=== PATIENT | female | born 1945 | race Two or more races ===

== ENCOUNTER 2024-04-06 14:31 | Outpatient (REF) | payer OTHER, SELFPAY ==
[2024-04-06 19:30] LABS: Vitamin B12 980 pg/mL (200-900)
[2024-04-07 03:55] LABS: Syphilis Screen Nonreactive (Nonreactive)
== END 2024-04-06 14:32 | disposition home or self-care (01) ==
LOC: HO.LAB 14:31
PROVIDERS: PCP Internal Medicine; Visit Provider Psychiatry & Neurology Neurology
DX: G30.9 Alzheimer's disease, unspecified (principal)
CPT/HCPCS: 36415; 82607; 86780

== ENCOUNTER 2024-05-05 13:12 | Outpatient (REF) | payer OTHER, SELFPAY | END 2024-05-05 13:13 | disposition home or self-care (01) | LOC: HO.MRI 13:12 | PROVIDERS: PCP Internal Medicine; Visit Provider Psychiatry & Neurology Neurology | DX: G30.9 Alzheimer's disease, unspecified (principal) | CPT/HCPCS: 70551 ==

== ENCOUNTER 2024-07-13 08:53 | Outpatient (REF) | payer OTHER, SELFPAY ==
--- NOTE | ~2024-07-13 | XR_ITS ---
EXAMINATION: XR SHOULDER, LEFT CLINICAL INFORMATION: M25.512 - Pain in left shoulder COMPARISON: None available. TECHNIQUE: Three views of the left shoulder. FINDINGS: Normal bone mineralization. No fracture, dislocation, or suspicious bone lesion. Normal alignment. The glenohumeral joint demonstrates early degenerative arthritis. The AC joint demonstrates mild degenerative arthritis with mild undersurface spurs. There is a type II acromion. No undersurface spurring. The subacromial space is preserved. Remainder of the soft tissue and bony structures appear normal. XR/XR shoulder LT min 2V IMPRESSION: 1. No acute bony abnormalities. 2. 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 Electronically signed by: Rojas Rolon MD 07/13/2024 02:38 PM SONY COLBERT
[2024-07-13 10:18] LABS: MANUAL DIFF FLAG NO
[2024-07-13 10:44] LABS: Basophils Absolute Auto 0.1 X10*3/uL (0.0-0.2); Basophils Percent Auto 0.7 % (0-2); Eosinophils Absolute Auto 0.2 X10*3/uL (0.0-0.4); Eosinophils Percent Auto 2.5 % (0-4); Hematocrit 38.9 % (37.0-47.0); Hemoglobin 12.5 g/dl (12.0-16.0); Imm Gran Abs Auto 0.01 X10*3/uL (0.00-0.03); Imm Gran Pct Auto 0.1 % (0.0-0.4); Lymphocytes Absolute Auto 1.8 X10*3/uL (1.2-4.9); Lymphocytes Percent Auto 25.5 % (20-40); Mean Corpuscular HGB Conc 32.1 g/dl (31.0-35.0); Mean Corpuscular Hemoglobin 29.3 pg (27.0-33.0); Mean Corpuscular Volume 91.3 fL (80.0-98.0); Mean Platelet Volume 9.4 fL (9.4-12.3); Monocytes Absolute Auto 0.6 X10*3/uL (0.1-1.2); Monocytes Percent Auto 8.7 % (2-11); Neutrophils Absolute Auto 4.5 x10*3/uL (2.0-8.3); Neutrophils Percent Auto 62.5 % (45-73); Platelet Count 269 X10*3/uL (160-400); Red Blood Count 4.26 X10*6/uL (4.20-5.50); Red Cell Distribution Width 14.5 % (11.0-16.0); White Blood Count 7.1 X10*3/uL (4.8-10.8)
[2024-07-13 11:10] LABS: Alanine Aminotransferase 29 U/L (0-31); Alkaline Phosphatase 67 U/L (39-117); Anion Gap 12 (12-20); Aspartate Amino Transferase 30 U/L (5-31); Bilirubin Total 0.4 mg/dL (0.0-1.0); Blood Urea Nitrogen 11 mg/dL (9-16); Calcium 9.9 mg/dL (8.4-10.2); Carbon Dioxide 27 mmol/L (22-29); Chloride 107 mmol/L (96-108); Cholesterol 159 mg/dL (<200); Estimated Glomerular Filt Rate > 60; Glucose Fasting 88 mg/dL (60-99); HDL Cholesterol 47 mg/dL (>40); LDL Cholesterol Calculated 94 mg/dL (<100); Sodium 142 mmol/L (135-145); Triglycerides 94 mg/dL (<150)
== END 2024-07-13 08:54 | disposition home or self-care (01) ==
LOC: HO.LAB 08:53
PROVIDERS: PCP Internal Medicine; Visit Provider Internal Medicine
DX: G30.9 Alzheimer's disease, unspecified (principal); F02.80 Dementia in other diseases classified elsewhere, unspecified severity, without behavioral disturbance, psychotic disturbance, mood disturbance, and anxiety; Z23 Encounter for immunization; F41.1 Generalized anxiety disorder; I10 Essential (primary) hypertension; F33.1 Major depressive disorder, recurrent, moderate; G47.00 Insomnia, unspecified; G81.94 Hemiplegia, unspecified affecting left nondominant side; R29.898 Other symptoms and signs involving the musculoskeletal system; M25.512 Pain in left shoulder; Z99.3 Dependence on wheelchair
CPT/HCPCS: 36415; 73030; 80053; 80061; 85025; 90471; 90677; 96127; 99202

== ENCOUNTER 2024-07-13 08:53 | Outpatient (AMB) | payer OTHER, SELFPAY ==
--- NOTE | 2024-07-13 08:59 | MHC.PC.OV ---
Vital Signs 07/13/24 09:06 BMI Reason not done Patient refused/unable BP 126/80 Blood Pressure Location Rt brachial Pulse 85 Pulse Source Pulse Oximeter Pulse Oximetry (%) 96 Oxygen Delivery Method Room Air Intake Visit Reasons: New Patient Children'S Program Coordinator Required: Yes Children'S Program Coordinator Language: Loan Services Professional Name: Megan Summers MD Information Interpreted: non-clinical & clinical Accompanied by: Son Allergies No Known Allergies Allergy (Verified 07/13/24 09:16) Medication List - Last Reconciled 07/13/24 by Megan Summers MD candesartan-hydrochlorothiazid 32-25 mg 1 tab PO DAILY cetirizine 10 mg PO DAILY PRN clonazepam 0.5 mg PO BEDTIME docusate sodium 240 mg PO PRN losartan 100 mg PO DAILY olanzapine 5 mg PO DAILY sertraline 100 mg PO DAILY trazodone 100 mg PO BEDTIME PRN Tobacco use date assessed: 07/13/24 Fall risk assessment: 1 Fall in past year Last assessed Fall Risk: 07/13/24 Dental Screening Dental Screen Date: 07/13/24 Did you have a dental visit in the last 12 months?: Yes Did you have a dental problem in the last 6 months where you did not have access to dental care?: No Was dental information given to patient?: Patient has dentist HPI HPI Comments History of Present Illness Details The patient is a 78-year-old female presenting with Alzheimer's Disease to establish care. The sourcing analyst reports an escalation in depressive symptoms, featured by gabrielle-hour crying spells, alongside progressive cognitive decline. Though previously managed stably on sertraline and trazodone, recent behavioral changes prompted a revisit to her neurologist. Despite adhering to her antihypertensive regimen, she experiences disordered sleep and anxiety. With persistent difficulties in retaining new memories, her condition inhibits her exercise and mobility, even impacting her dietary habits. Although a neuroimaging was negative for acute changes, physical complaints involving limb discomfort have not resolved with preliminary interventions. She follows with Neurology. Currently wheelchair dependent. Has left arm hemiparesis but no evidence of stroke. Will benefit from physical therapy. Also has bilateral leg weakness and son wants her to have physical therapy for it. She has moderate major depression with anxiety as well as insomnia and trazodone will be increased. [facility] Surgical History (Updated 07/13/24 @ 09:24 by Megan Summers MD) History of total abdominal hysterectomy Family History Mother Alzheimer disease Father Alcoholism Social History (Updated 07/13/24 @ 09:26 by Megan Summers MD) Housing: House Alcohol intake: never Patient Tobacco Use Status: Former Tobacco user e-Cigarette/Vaping Use: Never Used service: No Current occupational status: unemployed Current occupational exposures/hazards: No Cognitive needs: Yes Hearing needs: No Vision needs: No Questionnaire PHQ-9 Over the last 2 weeks, how often have you been bothered by any of the following problems? 1. Little interest or pleasure in doing things: not at all 2. Feeling down, depressed, or hopeless: nearly every day 3. Trouble falling or staying asleep, or sleeping too much: more than half the days 4. Feeling tired or having little energy: nearly every day 5. Poor appetite or overeating: several days 6. Feeling bad about yourself - or that you are a failure or have let yourself or your family down: not at all 7. Trouble concentrating on things, such as reading the newspaper or watching television: nearly every day 8. Moving or speaking so slowly that other people could have noticed. Or the opposite - being so fidgety or restless that you have been moving around a lot more than usual: more than half the days 9. Thoughts that you would be better off or of hurting yourself in some way: not at all Total score: 14 Depression Screening Interpretation: Positive Depression Screening Follow-up: Existing condition, In treatment and Follow-up Visit Requested Depression Screening Done: Yes 42840 - PHQ-9 Billing: Yes Source: Developed by Drs. Michael Camacho, Alfreda Ware, Nick Bran and colleagues, with an educational mima from [employer]. Thrive Questionnaire Date Thrive assessed: 07/13/24 I am a: Patient What is your living situation today?: I have a steady place to live Within the past 12 months, did the food you bought not last and you didn't have the money to get more?: Sometimes True Within the past 12 months, did you worry whether your food would run out before you got money to buy more?: Sometimes True Do you have trouble paying for medicines?: No Do you have trouble getting transportation to medical appointments?: No Do you have trouble paying your heating and electricity bill?: I choose not to answer this question Do you have trouble taking care of your child, family member or friend?: Yes Do you have trouble with day-to-day activities such as bathing, preparing meals, shopping, managing finances, etc.?: Yes Are you currently unemployed and looking for a job?: I choose not to answer this question Are you interested in more education?: I choose not to answer this question Please select the resources that you would like help with: Food Currently or been in a relationship where the following occur: I choose not to answer THRIVE Score: 2 AUDIT C Alcohol Use Questionnaire (AUDIT-C) 1. How often do you have a drink containing alcohol?: Never 3. How often do you have six or more drinks on one occasion?: Never Total Score: 0 Score Reviewed/Action Taken: No VIC-7 AMB Questionnaire VIC-7 Date VIC - 7 assessed: 07/13/24 Feeling nervous, anxious, or on edge: 3 = Nearly every day Not being able to stop or control worryin = Nearly every day Worrying too much about different things: 1 = Several days Trouble relaxin = More than half the days Being so restless that it is hard to sit still: 2 = More than half the days Becoming easily annoyed or irritable: 3 = Nearly every day Feeling afraid as if something awful might happen: 2 = More than half the days Total VIC-7 score (0-4 normal; 5-9 mild; 10-14 moderate; 15-21 severe): 16 Source: Developed by Drs. Michael Camacho, Alfreda Ware, Nick Bran and colleagues, with an educational mima from [employer]. VIC-7 Assessment Billing VIC-7 Assessment Tool: VIC-7 Assessment 05016 Review of Systems Const All systems reviewed & are unremarkable except as noted in HPI and below Card Denies chest pain at rest, Denies chest pain with activity, Denies edema, Denies irregular heart rhythm, Denies claudication, Denies dyspnea, Denies dyspnea on exertion, Denies orthopnea, Denies paroxysmal nocturnal dyspnea and Denies slow heart rate Resp Denies cough, Denies dyspnea and Denies dyspnea on exertion GI Denies abdominal pain, Denies change in bowel habits, Denies excessive flatus, Denies nausea and Denies vomiting Musc Reports abnormal gait, Reports arthralgias and Reports limited range of motion Neuro Reports abnormal gait, Reports behavioral changes, Reports confusion and Reports memory loss Psych Reports abnormal sleep pattern, Reports anxiety, Reports behavioral changes, Reports change in appetite, Reports confusion, Reports depression and Reports memory loss Physical exam (Primary Care) Vital Signs: Last Vital Signs Pulse 85 07/13/24 09:06 BP 126/80 07/13/24 09:06 Pulse Ox 96 07/13/24 09:06 Oxygen Delivery Method Room Air 07/13/24 09:06 Tobacco/Smoking Status: Tobacco use Status Tobacco use date assessed 07/13/24 07/13/24 09:14 Patient Tobacco Use Status Former Tobacco user 07/13/24 09:26 e-Cigarette/Vaping Use Never Used 07/13/24 09:26 PHQ-9: PHQ-9 Score PHQ-9: Total score 14 07/13/24 09:42 Depression Screening Interpretation: Positive Depression Screening Follow-up: Existing condition, In treatment and Follow-up Visit Requested Thrive Assessment: Date of Thrive Assessment Date Thrive assessed 07/13/24 07/13/24 09:14 Currently or been in a relationship where the following occur: I choose not to answer Const General: confusion Orientation/consciousness: confusion Limitations: wheelchair Resp Effort & Inspection: normal respiratory effort Auscultation: clear to auscultation bilaterally Cardio Jugular venous distension: no JVD Rate: regular rate Rhythm: regular rhythm Heart sounds: S1 normal heart sound present and S2 normal heart sound present Neuro General: confusion Cognition (Neuro): abnormal cognition Extrem Left upper extremity: shoulder/upper arm Details: abnormal ROM Details: pain with active ROM Details: in ABduction, in extension, in internal rotation and external rotation- Immunizations pneumoc 20-sunil conj-dip cr(PF) 0.5 mL IM syringe Performing Provider: Megan Summers MD [place]forming [place] [facility] Administered by: Michelle Devlin LPN on 07/13/24 09:42 Dose Route Admin Location Dispensed Lot Number Expiration Date [facility] Tool Turret Lathe Set Up Operator 0.5 mL IM Left Deltoid 0.5 mL [id number] 08/16/25 [employer] VIS Given Date VIS Provided VIS Publication Date 07/13/24 Single Vaccine 21 Eligibility Eligibility Date Funding Source Not [facility] Eligible 07/13/24 Private Coding Level of Care Code New Pt Level 4 (04397) Complex EM visit Add On G2211 Diagnoses Alzheimer's dementia G30.9; F02.80 VIC (generalized anxiety disorder) F41.1 Essential hypertension I10 Moderate recurrent major depression F33.1 Wheelchair dependent Z99.3 Insomnia G47.00 Left hemiparesis G81.94 Bilateral leg weakness R29.898 Additional Codes VIC-7 Assessment Billing - VIC-7 Assessment Tool: VIC-7 Assessment 64777 ([id number]) PHQ-9 - 71343 - PHQ-9 Billing: Yes ([id number]) Time Spent (min) 28 Assessment & Plan Assessment & Plan (1) Alzheimer's dementia: Code(s): G30.9 - Alzheimer's disease, unspecified; F02.80 - Dementia in other diseases classified elsewhere, unspecified severity, without behavioral disturbance, psychotic disturbance, mood disturbance, and anxiety Category: Medical (2) VIC (generalized anxiety disorder): Code(s): F41.1 - Generalized anxiety disorder Category: Medical (3) Essential hypertension: Code(s): I10 - Essential (primary) hypertension Category: Medical (4) Moderate recurrent major depression: Code(s): F33.1 - Major depressive disorder, recurrent, moderate Category: Medical (5) Wheelchair dependent: Code(s): Z99.3 - Dependence on wheelchair Category: Medical (6) Insomnia: Code(s): G47.00 - Insomnia, unspecified Category: Medical (7) Left hemiparesis: Code(s): G81.94 - Hemiplegia, unspecified affecting left nondominant side Category: Medical (8) Bilateral leg weakness: Code(s): R29.898 - Other symptoms and signs involving the musculoskeletal system Category: Medical Plan A pneumococcal vaccine was administered during this visit to enhance preventive care against pneumonia. Adjusted trazodone to 150 mg at night due to its insufficient efficacy at the previous dose, aiming to alleviate ongoing depressive symptoms. A shoulder X-ray was ordered to investigate the cause of persistent shoulder discomfort. Physical therapy is advised to increase mobility, improving muscle conditioning due to prolonged wheelchair use. The patient and family are counseled on diet modification to assist with constipation management. Emphasis is placed on medication adherence, especially concerning antihypertensives and neuropsychiatric medications, with close follow-up on the neurologist's recommendations regarding Alzheimer?s management. Patient was informed and verbally consented to the use of an ambient scribe for clinic note documentation during this visit. I discussed with the patient?s family the potential requirement for increased trazodone due to its inadequate effect on current depressive episodes and the plan to evaluate the shoulder and physical function through imaging and therapy. We discussed the essentiality of pneumonia vaccination and its negligible likelihood of causing side effects. I clarified the need for dietary modification as part of constipation management and promised to revisit concerns after orthopedic and neurologic evaluations. Consent was obtained for vaccination, and the family was informed to continue supervising her complex treatment regimen. Orders: Orders PT Evaluation and Treatment Today G81.94 - Hemiplegia, unspecified affecting left nondominant side, M25.512 - Pain in left shoulder, R29.898 - Other symptoms and signs involving the musculoskeletal system Lipid Panel Today I10 - Essential (primary) hypertension Pneumococcal 20 Immunization Today Z23 - Encounter for immunization XR shoulder LT min 2V Today M25.512 - Pain in left shoulder Comprehensive [place]. Panel Fast Today I10 - Essential (primary) hypertension Complete Blood Count Auto Diff Today F02.80 - Dementia in other diseases classified elsewhere, unspecified severity, without behavioral disturbance, psychotic disturbance, mood disturbance, and anxiety, G30.9 - Alzheimer's disease, unspecified Medications: New trazodone 150 mg PO BEDTIME PRN 90 tabs 0RF sleep 90 days G47.00 - Insomnia, unspecified Patient Instructions: - Get the X-ray of the shoulder as ordered. - Continue with all current medications as prescribed. - Follow the revised dosing of trazodone at bedtime. - Begin physical therapy for mobility improvement. - Maintain dietary adjustments to prevent constipation. - Monitor depressive symptoms and report any significant changes immediately. - Stay vigilant for any further cognitive changes and follow up with neurology regularly. - Ensure regular pneumococcal vaccination and check on flu status in the future. - Return for any new or worsening symptoms promptly.
[2024-07-13 09:06] VITALS: BP 126/80; PULSE 85; O2SAT 96
== END 2024-07-13 09:49 | disposition home or self-care (01) ==
PROVIDERS: PCP Internal Medicine; Visit Provider Internal Medicine
DX: G30.9 Alzheimer's disease, unspecified (principal); F02.80 Dementia in other diseases classified elsewhere, unspecified severity, without behavioral disturbance, psychotic disturbance, mood disturbance, and anxiety; F33.1 Major depressive disorder, recurrent, moderate; G81.94 Hemiplegia, unspecified affecting left nondominant side; F41.1 Generalized anxiety disorder; I10 Essential (primary) hypertension; Z99.3 Dependence on wheelchair; G47.00 Insomnia, unspecified; R29.898 Other symptoms and signs involving the musculoskeletal system; Z23 Encounter for immunization

== ENCOUNTER → 2024-07-13 10:17 | Outpatient (BNV) | payer OTHER, SELFPAY | PROVIDERS: PCP Internal Medicine; Visit Provider Radiology Diagnostic Radiology | DX: M25.512 Pain in left shoulder (principal) | CPT/HCPCS: 73030 ==

== ENCOUNTER 2024-08-17 11:29 | Emergency (ER) | payer OTHER, SELFPAY ==
--- NOTE | ~2024-08-17 | XR_ITS ---
EXAMINATION: XR FOOT, LEFT CLINICAL INFORMATION: wound L heel COMPARISON: None available. TECHNIQUE: AP, lateral, and oblique views of the left foot. FINDINGS: There is mild diffuse osteopenia. No fracture, dislocation, or suspicious bone lesion. Specifically, there is no permeative bone changes of the calcaneus. There is normal alignment. Mild osteoarthritis at the first MTP joint. Normal plantar arch. Midfoot and hindfoot appear normal. No soft tissue gas or radiopaque foreign body. XR/XR foot LT min 3V IMPRESSION: 1. No radiographic evidence of osteomyelitis. No acute findings. 2. No soft tissue gas or radiopaque foreign body seen. Electronically signed by: Rojas Rolon MD 08/17/2024 02:01 PM EDT
--- NOTE | ~2024-08-17 | XR_ITS ---
EXAMINATION: XR SACRUM AND COCCYX CLINICAL INFORMATION: sacral wound COMPARISON: None available. TECHNIQUE: 2 views of the sacrum and 2 views of the coccyx were obtained. FINDINGS: No acute cortical disruption. No osteolysis. No lytic or blastic lesions. XR/XR sacrum coccyx min 2V IMPRESSION: No acute fracture. Osteomyelitis and/or cellulitis cannot be evaluated. Electronically signed by: Casey Wilson MD 08/17/2024 01:38 PM EDT
[2024-08-17 11:43] VITALS: BP 146/58; PULSE 92; O2SAT 98
--- NOTE | 2024-08-17 11:46 | ED.GENADULT ---
HPI - General Adult General Chief complaint: Wound/Laceration Stated complaint: VNA STS L LE/BUTTOCK/BREAST WOUNDS PER EMS Time Seen by Provider: 08/17/24 11:46 Source: family (son), RN notes reviewed and old records reviewed Mode of arrival: ambulatory Limitations: no limitations History of Present Illness ED Provider: Deann HPI narrative: Patient is a 78-year-old female with history of Alzheimer's dementia, HTN, left hemiparesis wheelchair dependent/bed-bound, generalized anxiety disorder, depression, insomnia, urinary and fecal incontinence presenting to the emergency department with son who states that her visiting nurse was concerned about wounds to her left heel, under left breast, to sacral area and right hip. Son states the wounds have been present for at least a month, he has been caring for the wounds as directed by the visiting nurse. Patient lives with son. Denies fevers. Patient unable to provide any history. She is able to state her name and son's name. MD complaint: wounds Onset (ago): week(s) Related Data Home Medications ?Medication ?Instructions ?Recorded ?Confirmed candesartan 32 1 tab PO DAILY 07/13/24 07/13/24 mg-hydrochlorothiazide 25 mg tablet cetirizine 10 mg tablet 10 mg PO DAILY PRN 07/13/24 07/13/24 clonazepam 0.5 mg tablet 0.5 mg PO BEDTIME 07/13/24 07/13/24 docusate sodium 240 mg capsule 240 mg PO PRN 07/13/24 07/13/24 losartan 100 mg tablet 100 mg PO DAILY 07/13/24 07/13/24 olanzapine 5 mg tablet 5 mg PO DAILY 07/13/24 07/13/24 sertraline 100 mg tablet 100 mg PO DAILY 07/13/24 07/13/24 Previous Rx's ?Medication ?Instructions ?Recorded trazodone 150 mg tablet 150 mg PO BEDTIME PRN sleep 90 07/13/24 days #90 tabs cephalexin 500 mg capsule 500 mg PO QID #27 caps 08/17/24 Allergies Allergy/AdvReac Type Severity Reaction Status Date / Time No Known Allergies Allergy Verified 08/17/24 11:51 Review of Systems Review of Systems: As per HPI Yes all other systems are reviewed and are negative Constitutional: Constitutional: Reports as per HPI Neurologic: Reports confusion Psychiatric: Psychiatric: Reports confusion PMFSH Past Medical History Surgical History (Updated 07/13/24 @ 09:24 by Megan Summers MD) History of total abdominal hysterectomy Family History Family History Mother Alzheimer disease Father Alcoholism Social History Social History (Updated 07/13/24 @ 09:26 by Megan Summers MD) Housing: House Alcohol intake: never Patient Tobacco Use Status: Former Tobacco user e-Cigarette/Vaping Use: Never Used Advance Directives: No Advance Directives Information Provided: Yes service: No Current occupational status: unemployed Current occupational exposures/hazards: No Cognitive needs: Yes Hearing needs: No Vision needs: No Physical Exam ED Vital Signs: Vital Signs - 24 hr 08/17/24 11:47 08/17/24 15:16 Temperature 97.7 F 97.1 F Pulse Rate 84 79 Respiratory Rate 16 14 Blood Pressure 146/69 H 144/58 H Pulse Oximetry 97 97 Oxygen Delivery Method Room Air Room Air BMI result Body Mass Index 21.8 Vital signs have been reviewed and appear to be correct. Blood pressure normal. Heart rate normal. Respiratory rate normal. Temperature normal. Oxygen saturation normal. Const General: cooperative, healthy appearing, no acute distress, alert, awake and confusion Orientation/consciousness: oriented to person and confusion Limitations: altered mental status, physical limitations (baseline left hemiparesis) and wheelchair HENMT Head: Yes normocephalic and Yes atraumatic Ears: external ears normal General nose exam: Normal external nose present Face and sinus: Yes face symmetric Mouth: oropharynx normal and moist mucous membranes Throat: Yes uvula midline Eyes Pupils: Equal, round and reactive pupils present Neck Neck: Yes normal visual inspection and Yes supple Resp Effort & Inspection: normal respiratory effort and able to speak in complete sentences Auscultation: clear to auscultation bilaterally Cardio Rate: regular rate Rhythm: regular rhythm Heart sounds: S1 normal heart sound present and S2 normal heart sound present GI Palpation (GI): Soft to palpation and nontender Auscultation: normoactive bowel sounds General: Yes no CVA tenderness Back/Spine/Pelvis Back: no CVA tenderness Skin Other: wound to left heel, under left breast, sacrum/right buttock, and right hip-see attached photos General skin exam: elasticity normal and turgor normal Neuro General: oriented to person, CN's II-XI intact bilaterally and confusion Cranial nerves: Yes Equal, round and reactive pupils present Extrem General: Yes no pedal edema and Yes no calf tenderness Medical Decision Making Medical Decision Making [facility] Narrative: Patient is a 78-year-old female with history of Alzheimer's dementia, HTN, left hemiparesis wheelchair dependent/bed-bound, generalized anxiety disorder, depression, insomnia, urinary and fecal incontinence presenting to the emergency department with son who states that her visiting nurse was concerned about wounds to her left heel, under left breast, to sacral area and right hip. On exam patient is awake, A+Ox3, VS WNL, afebrile, normal neurological exam without focal deficits, physical exam findings as above. Given reported symptoms and physical exam findings, initial differential includes but is not limited to chronic wounds, cellulitis, osteomyelitis, sepsis. Labs notable for no leukocytosis, slightly elevated ESR/CRP, normal lactic. Do not suspect sepsis at 12:29. X-ray left foot notable for no evidence of osteomyelitis. My interpretation is in agreement with the radiologist's interpretation. Results discussed with son and all questions answered. Will start on Keflex and referred to wound clinic for further evaluation and management. Discussed with son to keep wounds covered with clean dry dressings. Return precautions discussed at bedside with son. Son verbalized understanding of and agreement with plan. In-person hatch supervisor was utilized for all interactions, assessments, and discussions. Differential Diagnosis Differential Diagnoses: The differential diagnosis associated with the presentation includes As per [facility] Admission/Observation Consideration of admission/observation: Escalation of care including admission/observation considered Patient would have been admitted to the hospital had their work up had any findings where hospital admission was appropriate and their clinical presentation warranted hospital admission. Lab Data [facility] Lab Attestation statement: I reviewed the patient's lab results. As per [facility] 08/17/24 12:29 08/17/24 12:29 Labs: Lab Results 08/17/24 Range/Units 12:29 WBC 7.1 (4.8-10.8) X10*3/uL RBC 3.77 L (4.20-5.50) X10*6/uL Hgb 11.2 L (12.0-16.0) g/dl Hct 33.1 L (37.0-47.0) % MCV 87.8 (80.0-98.0) fL MCH 29.7 (27.0-33.0) pg MCHC 33.8 (31.0-35.0) g/dl RDW 14.1 (11.0-16.0) % Plt Count 259 (160-400) X10*3/uL MPV 9.3 L (9.4-12.3) fL Immature Gran % (Auto) 0.3 (0.0-0.4) % Neut % (Auto) 71.1 (45-73) % Lymph % (Auto) 17.3 L (20-40) % [place] % (Auto) 9.4 (2-11) % Eos % (Auto) 1.5 (0-4) % Baso % (Auto) 0.4 (0-2) % Lymph # (Auto) 1.2 (1.2-4.9) X10*3/uL [place] # (Auto) 0.7 (0.1-1.2) X10*3/uL Eos # (Auto) 0.1 (0.0-0.4) X10*3/uL Baso # (Auto) 0.0 (0.0-0.2) X10*3/uL Abs Immat Gran (auto) 0.02 (0.00-0.03) X10*3/uL Absolute Neuts (auto) 5.1 (2.0-8.3) x10*3/uL Absolute Nucleated RBC 0.000 (0.0-0.012) X10*3/uL Nucleated RBC % (auto) 0.0 (0.0-0.2) /100WBC ESR 26 H (0-20) MM/HR Sodium 144 (135-145) mmol/L Potassium 4.0 (3.3-5.1) mmol/L Chloride 112 H (96-108) mmol/L Carbon Dioxide 24 (22-29) mmol/L Anion Gap 12 (12-20) BUN 21 H (9-16) mg/dL Creatinine 0.65 (0.5-1.4) mg/dL Estim Creat Clear Calc 68.9 Estimated GFR > 60 Random Glucose 108 (60-115) mg/dL Lactic Acid 1.8 (0.5-2.0) mmol/L Calcium 9.6 (8.4-10.2) mg/dL Total Bilirubin 0.4 (0.0-1.0) mg/dL AST 26 (5-31) U/L ALT 7 (0-31) U/L Alkaline Phosphatase 56 (39-117) U/L C-Reactive Protein 0.59 H (< or = 0.50) mg/dL Total Protein 6.6 (6.5-8.0) g/dL Albumin 3.4 L (3.5-5.0) g/dL Independent Interpretation I performed an independent interpretation of an: Plain X-Ray Interpretation: No evidence of osteomyelitis left foot. Radiology Impression Discussion of test interpretation with radiology: I have reviewed the radiologist's reading. Radiologist Impression: XR/XR foot LT min 3V IMPRESSION: 1. No radiographic evidence of osteomyelitis. No acute findings. 2. No soft tissue gas or radiopaque foreign body seen. XR/XR sacrum coccyx min 2V IMPRESSION: No acute fracture. Osteomyelitis and/or cellulitis cannot be evaluated. Independent Historian Clinical information obtained from an independent historian. History obtained from or confirmed by: Other (son, primary sheetrock applicator) External Record Review External record reviewed: Inpatient record, Office record and Outpatient record Prescription Management I considered prescription management with: Antibiotic Discharge Plan Discharge Clinical Impression: Open wound of left heel, Wound of right buttock Patient Disposition: Home, Self-Care Instructions: Wound Healing and Your Diet (ED), Chronic Wounds (ED) Additional Instructions: Charlene was evaluated in the emergency department today for multiple wounds. She is being treated with a course of antibiotics. Complete the full course as prescribed. We are referring her to [facility] for further evaluation and management of her wounds. Call their office to schedule an appointment. Keep the wounds covered with clean, dry dressings until you see Wound Care. Follow up with her primary care provider as well. Return to the emergency department if she develops fever, chills, body aches, thick yellow drainage from the wounds, new redness or swelling, or any other new or concerning symptoms. Prescriptions: New cephalexin 500 mg capsule 500 mg PO QID Qty: 27 0RF No Action cetirizine 10 mg tablet 10 mg PO DAILY PRN candesartan-hydrochlorothiazid 32-25 mg tablet 1 tab PO DAILY olanzapine 5 mg tablet 5 mg PO DAILY clonazepam 0.5 mg tablet 0.5 mg PO BEDTIME Rx Instructions: administer 30 minutes before bedtime docusate sodium 240 mg capsule 240 mg PO PRN losartan 100 mg tablet 100 mg PO DAILY sertraline 100 mg tablet 100 mg PO DAILY trazodone 150 mg tablet 150 mg PO BEDTIME PRN (Reason: sleep) 90 Days Qty: 90 0RF Referrals: [facility] [place] [facility] [Provider Group] - 2 days (Multiple wounds (L heel, R buttock/sacrum, R hip, under L breast), started on Keflex in the ED) Print Language: Danish
[2024-08-17 11:47] VITALS: BP 146/69; PULSE 84; RESP 16; TEMP 36.5; O2SAT 97; BMI 21.8
[2024-08-17 12:35] LABS: MANUAL DIFF FLAG NO
[2024-08-17 12:36] LABS: Basophils Percent Auto 0.4 % (0-2); Eosinophils Absolute Auto 0.1 X10*3/uL (0.0-0.4); Eosinophils Percent Auto 1.5 % (0-4); Hematocrit 33.1 % (37.0-47.0); Hemoglobin 11.2 g/dl (12.0-16.0); Imm Gran Abs Auto 0.02 X10*3/uL (0.00-0.03); Imm Gran Pct Auto 0.3 % (0.0-0.4); Lymphocytes Absolute Auto 1.2 X10*3/uL (1.2-4.9); Lymphocytes Percent Auto 17.3 % (20-40); Mean Corpuscular HGB Conc 33.8 g/dl (31.0-35.0); Mean Corpuscular Hemoglobin 29.7 pg (27.0-33.0); Mean Corpuscular Volume 87.8 fL (80.0-98.0); Mean Platelet Volume 9.3 fL (9.4-12.3); Monocytes Absolute Auto 0.7 X10*3/uL (0.1-1.2); Monocytes Percent Auto 9.4 % (2-11); Neutrophils Absolute Auto 5.1 x10*3/uL (2.0-8.3); Neutrophils Percent Auto 71.1 % (45-73); Platelet Count 259 X10*3/uL (160-400); Red Blood Count 3.77 X10*6/uL (4.20-5.50); Red Cell Distribution Width 14.1 % (11.0-16.0); White Blood Count 7.1 X10*3/uL (4.8-10.8)
[2024-08-17 12:52] LABS: Lactic Acid 1.8 mmol/L (0.5-2.0)
[2024-08-17 12:53] LABS: Alanine Aminotransferase 7 U/L (0-31); Albumin Level 3.4 g/dL (3.5-5.0); Alkaline Phosphatase 56 U/L (39-117); Anion Gap 12 (12-20); Aspartate Amino Transferase 26 U/L (5-31); Bilirubin Total 0.4 mg/dL (0.0-1.0); Blood Urea Nitrogen 21 mg/dL (9-16); C Reactive Protein 0.59 mg/dL (< or = 0.50); Calcium 9.6 mg/dL (8.4-10.2); Carbon Dioxide 24 mmol/L (22-29); Chloride 112 mmol/L (96-108); Creatinine Clr Calc Pharmacy 68.9; Estimated Glomerular Filt Rate > 60; Glucose Random 108 mg/dL (60-115); Sodium 144 mmol/L (135-145); Total Protein 6.6 g/dL (6.5-8.0)
[2024-08-17 13:17] LABS: Erythrocyte Sedimentation Rate 26 MM/HR (0-20)
[2024-08-17 15:16] VITALS: BP 144/58; PULSE 79; RESP 14; TEMP 36.2; O2SAT 97
[2024-08-17] MEDS: cephALEXin 500 MG CAPSULE PO (16:09)
[2024-08-17 17:03] VITALS: BP 144/58; PULSE 79; RESP 14; TEMP 36.2; O2SAT 97
== END 2024-08-17 20:00 | disposition home or self-care (01) ==
PROVIDERS: Registered Nurse Emergency; Emergency Provider Emergency Medicine; PCP Internal Medicine
DX: S91.302A Unspecified open wound, left foot, initial encounter (principal); S31.819A Unspecified open wound of right buttock, initial encounter; S21.002A Unspecified open wound of left breast, initial encounter; S71.001A Unspecified open wound, right hip, initial encounter; M79.672 Pain in left foot; M53.3 Sacrococcygeal disorders, not elsewhere classified; G30.9 Alzheimer's disease, unspecified; F02.80 Dementia in other diseases classified elsewhere, unspecified severity, without behavioral disturbance, psychotic disturbance, mood disturbance, and anxiety; I10 Essential (primary) hypertension; X58.XXXA Exposure to other specified factors, initial encounter; Y93.9 Activity, unspecified; Y92.9 Unspecified place or not applicable; Y99.8 Other external cause status; Z79.899 Other long term (current) drug therapy; Z87.891 Personal history of nicotine dependence
CPT/HCPCS: 36415; 72220; 73630; 80053; 83605; 85025; 85652; 86140; 87040; 99283; 99284

== ENCOUNTER → 2024-08-17 11:57 | Outpatient (BNV) | payer OTHER, SELFPAY | PROVIDERS: Emergency Provider Emergency Medicine; PCP Internal Medicine; Visit Provider Radiology Diagnostic Radiology | DX: S31.000A Unspecified open wound of lower back and pelvis without penetration into retroperitoneum, initial encounter (principal); S91.302A Unspecified open wound, left foot, initial encounter | CPT/HCPCS: 72220; 73630 ==

== ENCOUNTER 2024-09-28 16:02 | Outpatient (REF) | payer OTHER, SELFPAY | END 2024-09-28 16:03 | disposition home or self-care (01) | LOC: HO.HVNA 16:02 | PROVIDERS: Visit Provider Internal Medicine | DX: L89.154 Pressure ulcer of sacral region, stage 4 (principal) | CPT/HCPCS: 87070; 87077; 87186; 87205 ==